=== PATIENT | female | born 1985 | race Caucasian/White ===

== ENCOUNTER 2016-08-31 15:42 | Emergency (ER) | payer MEDICAID ==
[~2016-08-31] VITALS: Ht 157.5 cm; Wt 61.2 kg
[~2016-08-31 15:42] MED LIST: PREN-96 PO
[2016-08-31 15:59] VITALS: BP 120/84
[2016-08-31] MEDS ORDERED: ONDANSETRON ODT 4 MG TAB PO ONE (21:45)
[2016-08-31] MEDS ORDERED: LORazepam 2MG/ML-1ML VIAL IM ONE (21:45)
== END 2016-08-31 22:13 | disposition home or self-care (01) ==
LOC: ER 15:45
DX: F41.0 Panic disorder [episodic paroxysmal anxiety] (principal); F41.9 Anxiety disorder, unspecified; F32.9 Major depressive disorder, single episode, unspecified; R51 Headache; F17.210 Nicotine dependence, cigarettes, uncomplicated; N83.209 Unspecified ovarian cyst, unspecified side
CPT/HCPCS: 93005; 96372; 99283; J2060; Q0162